=== PATIENT | male | born 1950 | race Caucasian/White ===

== ENCOUNTER 2019-09-29 19:20 | Emergency (ER) | payer MEDICARE, OTHER ==
[2019-09-29] MEDS ORDERED: Ibuprofen 800 MG TAB ONE (19:57)
--- NOTE | 2019-09-29 20:28 | RAD ---
Exam: Chest one view HISTORY:Cough. Fever. Comparison: None FINDINGS: Cardiac silhouette: Normal Aorta: Unremarkable Pulmonary vessels: Normal Costophrenic angles: Clear LUNGS: Interstitial opacities predominantly in the right infrahilar region and left perihilar region Pneumothorax: None Osseous abnormalities: None IMPRESSION: Scattered interstitial opacities as described above. Continued surveillance is greer soriano
[2019-09-29] MEDS ORDERED: Amoxicillin/Potassium Clav 875 MG TAB ONE (20:44)
[2019-10-01 13:51] LABS: SARS-CoV-2 MS2 Positive; SARS-CoV-2 N Gene Negative; SARS-CoV-2 S Gene Negative; SARS-CoV-2 by NAA Not Detected (NotDetected); SARS-CoV-2 orf1ab Negative
== END 2019-09-29 20:55 | disposition home or self-care (01) ==
LOC: MADERS 19:20
DX: R05 Cough (principal); R50.9 Fever, unspecified; Z20.828 Contact with and (suspected) exposure to other viral communicable diseases
CPT/HCPCS: 71045; U0003; 87635

== ENCOUNTER 2021-08-12 06:56 | Outpatient (CLI) | payer MEDICARE, OTHER ==
[2021-08-12 07:13] LABS: #Basophils 0.1 thou/uL (0.0-0.2); #Eosinphils 0.1 thou/uL (0.0-0.7); #Lymphocytes 1.2 thou/uL (1.20-3.40); #Monocytes 0.4 thou/uL (0.11-0.59); #Neutrophils 3.3 thou/uL (1.40-6.50); %Basophils 1.5 % (0.0-1.0); %Eosinophils 1.9 % (0.0-10.0); %Monocytes 8.5 % (0.0-10.0); %Neutrophils 65.1 % (42.0-75.0); Hemoglobin 12.3 g/dL (14.0-18.0); Mean Corpuscular HGB CONC 32.4 g/dL (32.0-36.0); Mean Corpuscular Hemoglobin 27.7 pg (27.0-31.0); Mean Corpuscular Volume 85.7 fL (78.0-98.0); Mean Platelet Volume 6.6 fL (7.4-10.4); Platelet Count 262 thou/uL (130-400); RBC Distribution Width 12.3 % (11.5-14.5); Red Blood Cell (RBC) Count 4.43 mill/uL (4.70-6.10)
[2021-08-12 07:30] LABS: ALT (SGPT) 29 U/L (8-55); AST (SGOT) 15 U/L (5-34); Albumin 3.4 g/dL (3.4-4.8); Alkaline Phosphatase 58 U/L (40-110); Anion Gap 19 mmol/L (10-20); BUN (Urea Nitrogen) 18 mg/dL (8.4-25.7); Bilirubin, Total 0.2 mg/dL (0.2-1.2); Calc. Creatinine Clearance 0 mL/min (70-130); Calcium 9.1 mg/dL (7.8-10.44); Carbon Dioxide 22 mmol/L (23-31); Chloride 105 mmol/L (98-107); Globulin 3.3 g/dL (2.4-3.5); Glucose 148 mg/dL (83-110); Potassium 3.8 mmol/L (3.5-5.1); Protein, Total 6.7 g/dL (5.8-8.1); Sodium 142 mmol/L (136-145)
== END 2021-08-12 06:57 | disposition home or self-care (01) ==
LOC: MADLAB 06:56
PROVIDERS: ATTEND Internal Medicine
DX: A41.9 Sepsis, unspecified organism (principal)
CPT/HCPCS: 80053; 85025